=== PATIENT | male | born 1965 | race African-American/Black ===

== ENCOUNTER 2021-08-20 00:19 | Emergency (ER) | payer OTHER ==
[~2021-08-20] VITALS: Ht 175.3 cm; Wt 106.0 kg
[~2021-08-20 00:19] MED LIST: ACCOLATE10 MG; ANTIVERT25 MG PO; ASPIRIN325 MG PO; CLINDAMYCIN HC150 MG PO; CLONIDINE0.1 MG PO; EQ ASPIRIN325 MG OR; HYDROCHLORO25 MG/TAB PO; HYDROCHLOROT12.5 MG PO; HYDROCO/APAP1 T11 OR; K-DUR/KLOR-CON20 MEQ PO; K-TABS10 MEQ OR; KLOR-CON 1010 ME1 PO; KLOR-CON 1010 MEQ PO; KLOR-CON M2020 MEQ PO; LASIX 40 MG40 MG/TAB OR; LASIX 80 MG TAB80 M1 OR; LASIX 80 MG TAB80 MG PO; LISINOP/HCTZ1 TA1 PO; LISINOPRIL10 MG PO; LISINOPRIL20 MG PO; MELOXICAM7.5 MG PO; METOLAZONE2.5 MG PO; METOPROL TAR100 M1 PO; METOPROL TAR100 MG PO; METOPROL TAR25 M1 PO; METOPROL TAR50 MG PO; NAPROSYN500 MG PO; NAPROXEN EC375 MG OR; NAPROXEN500 MG PO; NORVASC10 MG PO; PERCOCET1 TA3 PO; POT CHLORIDE10 ME1; POT CHLORIDE10 ME1 PO; ROCEPHIN 2250 MG/VIA IM; SIMVASTATIN40 MG OR; SPIRONOLACT25 MG PO; TRAMADOL HCL50 MG PO; XANAX0.25 MG PO; XANAX0.5 MG PO; ZESTRIL20 MG PO; ZESTRIL30 MG PO; ZOFRAN ODT4 MG PO
[2021-08-20 00:34] VITALS: BP 134/89
[2021-08-20 00:57] VITALS: BP 134/85
[2021-08-20 01:01] VITALS: BP 142/88
[2021-08-20 01:31] VITALS: BP 135/83
[2021-08-20] MEDS ORDERED: FLEXERIL5 M1 PO (01:48)
[2021-08-20] MEDS ORDERED: TORADOL PO (01:48)
[2021-08-20 02:02] VITALS: BP 135/83
== END 2021-08-20 02:13 | disposition home or self-care (01) | DRG 563 ==
LOC: ED 00:19
DX: S43.402A Unspecified sprain of left shoulder joint, initial encounter (principal); S63.91XA Sprain of unspecified part of right wrist and hand, initial encounter; I10 Essential (primary) hypertension; X50.0XXA Overexertion from strenuous movement or load, initial encounter; Y93.89 Activity, other specified; Y92.89 Other specified places as the place of occurrence of the external cause; Y99.0 Civilian activity done for income or pay; Z86.73 Personal history of transient ischemic attack (TIA), and cerebral infarction without residual deficits